=== PATIENT | male | born 1945 | race African-American/Black ===

== ENCOUNTER 2017-10-14 16:15 | Emergency (ER) | payer MEDICARE, MEDICAID ==
[~2017-10-14] VITALS: Ht 185.4 cm; Wt 87.0 kg
[~2017-10-14 16:15] MED LIST: ASPI-1159 PO; CEPH500T; PROM6.25 PO; SIMV10TA6 PO
[2017-10-14] MEDS ORDERED: BACITRACIN ZINC OINT UDPKT TOP ONE (19:15)
[2017-10-14] MEDS ORDERED: TETANUS, DIPHTHERIA, PERTUSSIS VAC/PF 0.5ML (>7YR OLD) IM ONE (19:15)
[2017-10-14] MEDS ORDERED: ACETAMINOPHEN 325MG TABLET PO ONE (19:15)
[2017-10-14] MEDS ORDERED: LIDOCAINE HCL 1% 20ML VIAL (Pyxis) INJ MC ONE (19:15)
[2017-10-14 23:40] VITALS: BP 118/78
== END 2017-10-14 23:42 | disposition home or self-care (01) ==
LOC: ER 17:08
DX: L02.212 Cutaneous abscess of back [any part, except buttock and flank] (principal); F17.200 Nicotine dependence, unspecified, uncomplicated; Z79.82 Long term (current) use of aspirin
CPT/HCPCS: 10060; 90471; 90715; 99283; J3490

== ENCOUNTER 2017-10-16 10:00 | Emergency (ER) | payer MEDICARE, MEDICAID ==
[~2017-10-16] VITALS: Ht 185.4 cm; Wt 87.0 kg
[2017-10-16 12:20] VITALS: BP 115/85
== END 2017-10-16 14:45 | disposition home or self-care (01) ==
LOC: ER 10:39
DX: Z48.01 Encounter for change or removal of surgical wound dressing (principal); I10 Essential (primary) hypertension; F17.200 Nicotine dependence, unspecified, uncomplicated
CPT/HCPCS: 99282